=== PATIENT | male | born 1970 | race Hispanic/Latino ===

== ENCOUNTER 2021-07-02 20:27 | Emergency (ER) | payer OTHER ==
[~2021-07-02 20:27] MED LIST: NO MEDS
[2021-07-02] MEDS ORDERED: BP MED (21:31)
[2021-07-02 22:05] VITALS: BP 157/80
== END 2021-07-02 22:04 | disposition home or self-care (01) | DRG 951 ==
LOC: ED 20:27
DX: Z20.822 Contact with and (suspected) exposure to COVID-19 (principal); I10 Essential (primary) hypertension